=== PATIENT | male | born 1970 | race Caucasian/White ===

== ENCOUNTER 2023-02-03 22:13 | Inpatient (IN) ==
[2023-02-03] MEDS ORDERED: 0.9 % SODIUM CHLORIDE 1,000 ML IV ONE (22:37)
[2023-02-04 00:04] LABS: Basophils # (Auto) 0.04 K/mcL (0.00-0.30); Basophils % (Auto) 0.3 % (0.0-2.0); Eosinophils # (Auto) 0.02 K/mcL (0.00-0.70); Eosinophils % (Auto) 0.1 % (0.0-7.0); Hematocrit 46.2 % (40.1-51.0); Hemoglobin 14.7 g/dL (13.7-17.5); Lymphocytes # (Auto) 1.87 K/mcL (1.50-4.80); Lymphocytes % (Auto) 12.5 % (15.5-49.0); Mean Cell Volume 82.9 fL (80.0-100.0); Mean Corpuscular HGB Conc 31.8 g/dL (31.0-36.0); Mean Platelet Volume 10.3 fL (8.8-12.5); Monocytes % (Auto) 6.7 % (1.0-12.0); Neutrophils % (Auto) 79.5 % (38.0-78.0); Platelet Count 174 K/mcL (140-440); RBC 5.57 M/mcL (4.63-6.08); Red Cell Distribution Width 14.4 % (11.5-14.5)
[2023-02-04] MEDS ORDERED: cefTRIAXone 1 GM VIAL IV ONE (00:12)
[2023-02-04 00:22] LABS: ALT/SGPT 27 U/L (<40); AST/SGOT 31 U/L (<40); Albumin 3.5 gm/dL (3.2-5.2); Albumin/Globulin Ratio 0.8 (1.0-2.3); Alkaline Phosphatase 62 U/L (39-117); Bilirubin,Total 0.4 mg/dL (0.1-1.0); Blood Urea Nitrogen 8 mg/dL (6-20); Calcium 8.7 mg/dL (8.6-10.4); Carbon Dioxide 21 mmol/L (22-30); Chloride 92 mmol/L (96-108); Globulin 4.6 gm/dL (2.2-3.7); Glomerular Filtration Rate 70; Glucose 122 mg/dL (70-105)
[2023-02-04] MEDS ORDERED: ONDANSETRON 4 MG/2 ML VIAL IV ONE (01:07)
[2023-02-04] MEDS: 0.9 % SODIUM CHLORIDE 1,000 ML IV SCH ×3 (02:06→23:24)
[2023-02-04] MEDS: HYDROmorphone 0.5 MG/0.5 ML SYRINGE IV PRN ×2 (02:24→08:39)
[2023-02-04] MEDS ORDERED: morphine 4 MG/ML VIAL IV PRN (09:48)
[2023-02-04] MEDS ORDERED: VANCOMYCIN PER PHARMACY IV SCH (09:48)
[2023-02-04] MEDS ORDERED: IPRATROPIUM/ALBUTEROL 3 ML AMPUL.NEB NEB PRN (09:48)
[2023-02-04] MEDS ORDERED: traZODone HCL 50 MG TABLET PO PRN (09:48)
[2023-02-04] MEDS ORDERED: PIPERACILLIN SODIUM/TAZOBACTAM 3.375 GM in DEXTROSE 5% IN WATER 50 ML IV SCH (09:48)
[2023-02-04] MEDS ORDERED: ONDANSETRON 4 MG/2 ML VIAL IV PRN (09:48)
[2023-02-04] MEDS ORDERED: VANCOMYCIN 1,500 MG in 0.9 % SODIUM CHLORIDE 500 ML IV SCH (10:00)
[2023-02-04] MEDS: cefTRIAXone 1 GM VIAL IV SCH (11:15)
[2023-02-04] MEDS: oxyCODONE IR 5 MG TABLET PO PRN ×3 (11:16→19:32)
[2023-02-04] MEDS: 0.9 % SODIUM CHLORIDE 10 ML SYRINGE IV SCH ×2 (13:19→22:58)
[2023-02-04] MEDS: MUPIROCIN OINT 2% 22GM TOPICAL SCH ×2 (15:08→20:29)
[2023-02-04] MEDS: ACETAMINOPHEN 325 MG TABLET PO PRN (15:09)
[2023-02-04] MEDS: SENNOSIDES 1 TABLET PO SCH (20:29)
[2023-02-04] MEDS: DOCUSATE SODIUM 100 MG CAPSULE PO SCH (20:29)
[2023-02-05] MEDS: 0.9 % SODIUM CHLORIDE 10 ML SYRINGE IV SCH ×2 (04:50→17:08)
[2023-02-05] MEDS: oxyCODONE IR 5 MG TABLET PO PRN ×5 (04:57→23:53)
[2023-02-05] MEDS: ENOXAPARIN 40 MG/0.4 ML SYRINGE SQ SCH (10:07)
[2023-02-05] MEDS: DOCUSATE SODIUM 100 MG CAPSULE PO SCH ×2 (10:07→20:45)
[2023-02-05] MEDS: MUPIROCIN OINT 2% 22GM TOPICAL SCH ×2 (10:08→21:53)
[2023-02-05] MEDS: 0.9 % SODIUM CHLORIDE 1,000 ML IV SCH (11:28)
[2023-02-05] MEDS: cefTRIAXone 1 GM VIAL IV SCH (11:33)
[2023-02-05] MEDS ORDERED: FUROSEMIDE 40 MG/4 ML VIAL IV ONE (13:30)
[2023-02-05] MEDS ORDERED: FLUZONE QUAD QS2023-24/PF 60 MCG/0.5 ML SYRINGE IM ONE (13:30)
[2023-02-05 14:25] LABS: Basophils # (Auto) 0.03 K/mcL (0.00-0.30); Basophils % (Auto) 0.5 % (0.0-2.0); Eosinophils # (Auto) 0.08 K/mcL (0.00-0.70); Eosinophils % (Auto) 1.2 % (0.0-7.0); Hematocrit 39.4 % (40.1-51.0); Hemoglobin 12.3 g/dL (13.7-17.5); Lymphocytes # (Auto) 1.43 K/mcL (1.50-4.80); Lymphocytes % (Auto) 21.7 % (15.5-49.0); Mean Cell Volume 83.1 fL (80.0-100.0); Mean Corpuscular HGB Conc 31.2 g/dL (31.0-36.0); Mean Platelet Volume 10.1 fL (8.8-12.5); Monocytes # (Auto) 0.77 K/mcL (0.10-0.90); Monocytes % (Auto) 11.7 % (1.0-12.0); Neutrophils % (Auto) 64.4 % (38.0-78.0); Platelet Count 192 K/mcL (140-440); RBC 4.74 M/mcL (4.63-6.08); Red Cell Distribution Width 14.8 % (11.5-14.5); WBC 6.6 K/mcL (4.5-11.0)
[2023-02-05] MEDS ORDERED: FUROSEMIDE 80 MG TABLET PO ONE (15:32)
[2023-02-05 15:42] LABS: ALT/SGPT 35 U/L (<40); AST/SGOT 45 U/L (<40); Albumin 2.9 gm/dL (3.2-5.2); Albumin/Globulin Ratio 0.7 (1.0-2.3); Alkaline Phosphatase 56 U/L (39-117); Bilirubin,Direct < 0.2 mg/dL (0-0.3); Bilirubin,Total 0.3 mg/dL (0.1-1.0); Blood Urea Nitrogen 11 mg/dL (6-20); Calcium 8.5 mg/dL (8.6-10.4); Carbon Dioxide 24 mmol/L (22-30); Chloride 96 mmol/L (96-108); Globulin 4.1 gm/dL (2.2-3.7); Glomerular Filtration Rate 99; Glucose 137 mg/dL (70-105); Lactate Dehydrogenase 201 U/L (135-225); Phosphorous 3.4 mg/dL (2.5-4.5); Triglycerides 180 mg/dL (<150); Uric Acid 6.5 mg/dL (2.5-8.0)
[2023-02-05] MEDS: SENNOSIDES 1 TABLET PO SCH (20:45)
[2023-02-05] MEDS: ACETAMINOPHEN 325 MG TABLET PO PRN (20:46)
[2023-02-06] MEDS: 0.9 % SODIUM CHLORIDE 10 ML SYRINGE IV SCH ×3 (00:40→13:47)
[2023-02-06] MEDS: oxyCODONE IR 5 MG TABLET PO PRN (07:50)
[2023-02-06] MEDS ORDERED: cefTRIAXone 1 GM VIAL IM SCH (09:00)
[2023-02-06] MEDS: DOCUSATE SODIUM 100 MG CAPSULE PO SCH (09:01)
[2023-02-06] MEDS: MUPIROCIN OINT 2% 22GM TOPICAL SCH (09:01)
[2023-02-06] MEDS: ENOXAPARIN 40 MG/0.4 ML SYRINGE SQ SCH (09:01)
[2023-02-06] MEDS: cefTRIAXone 1 GM VIAL IV SCH (10:49)
== END 2023-02-06 15:56 | disposition home or self-care (01) | DRG 872 ==
LOC: ED 22:13 → MEDSUR 02-04 01:42
PROVIDERS: ADMIT Internal Medicine; ATTEND Internal Medicine